=== PATIENT | female | born 1940 | race Caucasian/White ===

== ENCOUNTER 2022-03-13 07:28 | Outpatient (CLI) | payer MEDICARE, OTHER, SELFPAY ==
--- NOTE | 2022-03-13 07:38 | CT_ITS ---
WS: [id number] CT NECK TECHNIQUE: Contrast-enhanced CT of the neck with coronal and sagittal reformatted images. 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 DLP: 213.[address] scans at [facility] use at least one of these dose optimization techniques: automated e xposure control; mA and/or kV adjustment per patient size (includes targeted exams where dose is matc hed to clinical indication); or iterative reconstruction. 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 Dental artifact degrades images at the tongue base. Paranasal sinuses an d mastoid air cells well aerated. Normal posterior nasopharynx. Normal parapharyngeal fat. Parotid gl ands are normal. Normal submandibular glands. No evidence of supraglottic or glottic mass. Subglottic airway is normal. A few tiny thyroid nodules. No cervical lymphadenopathy. Mild spondylitic changes cervical spine. Cervical curve. Partially visu alized intracranial contents appear normal. Mild carotid bulb calcification. CT/CT neck w con* [id number] IMPRESSION: 1. No evidence of supraglottic or glottic mass. 2. Normal salivary glands. 3. No cervical lymphadenopathy. 4. 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 5. No other acute findings.
[2022-03-13] MEDS: iohexol 350 mg/mL 500 mL Btl (per mL) IV (07:55)
[2022-03-13 08:12] LABS: Blood Urea Nitrogen 13 mg/dL (8-23)
== END 2022-03-13 07:29 | disposition home or self-care (01) ==
LOC: RAD 07:29
PROVIDERS: Visit Provider Otolaryngology
DX: K21.9 Gastro-esophageal reflux disease without esophagitis (principal); R07.0 Pain in throat; J84.10 Pulmonary fibrosis, unspecified
CPT/HCPCS: 70491; 82565; 84520

== ENCOUNTER 2022-03-27 11:11 | Outpatient (CLI) | payer MEDICARE, OTHER, SELFPAY ==
--- NOTE | 2022-03-27 11:21 | FL_ITS ---
WS: [id number] FL barium swallow [id number] REASON FOR EXAM: GASTRO ESOPHAGEAL REFLUX DZ W/O ESOPHAGITIS/PAIN IN THROAT FLUOROSCOPY TIME: 2min [id number] # OF SPOT FILMS: 12 FINDINGS: The patient was evaluated in the standing upright and prone REESE and supine positions. The swallowing of barium was monitored with fluoroscopy and the esophagus evaluated from the orophary nx through the stomach. The upper esophagus appeared normal and no aspiration was identified. There large portion of stomach (6 x 9 cm (is above the level of the diaphragm. It appears that the ga stroesophageal junction is also above the diaphragm. There are frequent tertiary contractions in the distal third of the esophagus. There was reflux to the midesophagus with the patient standing. The reflux was accentuated with the p atient in the REESE and even more so in the supine position. FL/FL barium swallow [id number] IMPRESSION: Very large hiatal hernia with significant large volume reflux. Frequent tertiar y contractions in the distal esophagus.
== END 2022-03-27 11:12 | disposition home or self-care (01) ==
LOC: RAD 11:14
PROVIDERS: Visit Provider Otolaryngology
DX: K21.9 Gastro-esophageal reflux disease without esophagitis (principal); R07.0 Pain in throat; K44.9 Diaphragmatic hernia without obstruction or gangrene
CPT/HCPCS: 74220

== ENCOUNTER → 2022-07-21 13:47 | Outpatient (BNVA) | payer MEDICARE, OTHER, SELFPAY | PROVIDERS: PCP Internal Medicine; Visit Provider Internal Medicine Cardiovascular Disease | DX: I10 Essential (primary) hypertension (principal); I45.10 Unspecified right bundle-branch block; R01.1 Cardiac murmur, unspecified; Z87.891 Personal history of nicotine dependence | CPT/HCPCS: 93005; 99204 ==

== ENCOUNTER 2022-08-14 12:17 | Outpatient (CLI) | payer MEDICARE, OTHER, SELFPAY ==
--- NOTE | 2022-08-14 12:45 | USCV_ITS ---
Betty Olivares Age: 82 Gender: F : 1940 Exam Date: 08/14/2022 13:08 Ordering Phys: Vero Doe MD ([email or web address]) Technologist: Filomena Kincaid [place] [facility] [place] BP: / HR: 63 Rhythm: Sinus Technical Quality: Adequate MEASUREMENTS (Male / Female) Normal Values 2D ECHO LV Diastolic Diameter PLAX 3.5 cm 4.2 - 5.9 / 3.9 - 5.3 cm LV Systolic Diameter PLAX 2.3 cm LV Chamber Size 2.9 cm IVS Diastolic Thickness 1.0 cm 0.6 - 1.0 / 0.6 - 0.9 cm IVS Systolic Thickness 1.4 cm LVPW Diastolic Thickness 0.9 cm 0.6 - 1.0 / 0.6 - 0.9 cm LVPW Systolic Thickness 1.5 cm RV Chamber Size 2.8 cm LVOT Diameter 2.0 cm LV Ejection Fraction 2D Teich 63.9 % LV Ejection Fraction MOD 2C 60.5 % LV Ejection Fraction 2C AL 62.3 % LA Diameter 2.8 cm LA Width 3.9 cm LA Height 3.4 cm RA Width 3.2 cm RA Height 3.5 cm Aorta at Sinotubular Diameter 2.5 cm IVC Diameter 0.8 cm M-MODE Aortic Annulus Diameter 3.1 cm LA Ao Ratio MM 1.1 MV E Point Septal Separation 0.2 cm DOPPLER AV Peak Velocity 116.0 cm/s LVOT Peak Velocity 69.0 cm/s AV Area Cont Eq vti 2.0 cm squared AV Area Cont Eq pk 1.9 cm squared MV Area PHT 3.5 cm squared Mitral E to A Ratio 1.0 MV E' Velocity 41.0 cm/s Mitral E to MV E' Ratio 8.0 Mitral E to LV E' Lateral Ratio 7.0 Mitral E to LV E' Septal Ratio 9.2 TR Peak Velocity 264.1 cm/s TR Peak Gradient 27.9 mmHg TR Mean Velocity 182.5 cm/s TR Mean Gradient 15.3 mmHg TR Velocity Time Integral 89.0 cm TV Peak E Velocity 75.0 cm/s Right Atrial Pressure 3.0 mmHg Pulmonary Artery Systolic Pressu 30.9 mmHg PV Peak Velocity 74.0 cm/s RV Acceleration Time 0.1 s RV Ejection Time 0.3 s RV AcT/ET 0.3 FINDINGS Left Ventricle Moderate left ventricular hypertrophy. No regional wall motion abnormalities. Normal left ventricular size and systolic function, EF 62 %. Grade I/IV diastolic dysfunction (abnormal relaxation filling pattern), normal to mildly elevated filling pressures. Right Ventricle Mildly increased right ventricular size. Normal right ventricular systolic function. Right Atrium Mildly increased right atrial size. Left Atrium Normal left atrial size. Mitral Valve Thickened mitral valve. Mild mitral valve regurgitation. Aortic Valve Thickened aortic valve. Trace aortic valve regurgitation. Tricuspid Valve Moderate tricuspid valve regurgitation. Estimated pulmonary artery peak systolic pressure 31 mmHg Pulmonic Valve No gross abnormalities noted Pericardium No pericardial effusion. Aorta Normal ascending aorta dimension. IVC Normal inferior vena cava. CONCLUSIONS Moderate left ventricular hypertrophy. No regional wall motion abnormalities. Normal left ventricular size and systolic function, EF 62 %. Grade I/IV diastolic dysfunction (abnormal relaxation filling pattern), normal to mildly elevated filling pressures. Mildly increased right ventricular size. Normal right ventricular systolic function. Mildly increased right atrial size. Thickened mitral valve. Mild mitral valve regurgitation. Thickened aortic valve. Trace aortic valve regurgitation. Moderate tricuspid valve regurgitation. Estimated pulmonary artery peak systolic pressure 31 mmHg. There is no pericardial effusion. There are no intracardiac masses. No similar previous studies are available for comparison Dr Vero Doe MD [facility] (Electronically Signed) Final Date: 16 August 2022 17:06 S
== END 2022-08-14 12:18 | disposition home or self-care (01) ==
LOC: RAD 12:27
PROVIDERS: PCP Internal Medicine; Visit Provider Internal Medicine Cardiovascular Disease
DX: R06.09 Other forms of dyspnea (principal); I34.0 Nonrheumatic mitral (valve) insufficiency; I35.8 Other nonrheumatic aortic valve disorders; I07.1 Rheumatic tricuspid insufficiency
CPT/HCPCS: 93306

== ENCOUNTER → 2022-10-27 14:04 | Outpatient (BNVA) | payer MEDICARE, OTHER, SELFPAY | PROVIDERS: PCP Internal Medicine; Visit Provider Internal Medicine Cardiovascular Disease | DX: I07.1 Rheumatic tricuspid insufficiency (principal); I45.10 Unspecified right bundle-branch block; I10 Essential (primary) hypertension; Z87.891 Personal history of nicotine dependence | CPT/HCPCS: 99213 ==

== ENCOUNTER → 2024-02-18 13:42 | Outpatient (BNVA) | payer MEDICARE, OTHER, SELFPAY | PROVIDERS: PCP Internal Medicine; Visit Provider Internal Medicine Cardiovascular Disease | DX: I10 Essential (primary) hypertension (principal); I45.10 Unspecified right bundle-branch block; I36.1 Nonrheumatic tricuspid (valve) insufficiency | CPT/HCPCS: 99214 ==

== ENCOUNTER → 2024-11-29 09:46 | Outpatient (BNVA) | payer MEDICARE, OTHER, SELFPAY | PROVIDERS: PCP Internal Medicine; Visit Provider Nurse Practitioner Family | DX: L29.89 Other pruritus (principal); L21.8 Other seborrheic dermatitis; L82.0 Inflamed seborrheic keratosis; Z78.9 Other specified health status; D48.5 Neoplasm of uncertain behavior of skin | CPT/HCPCS: 11102; 17110; 99204 ==

== ENCOUNTER → 2025-01-26 08:51 | Outpatient (BNVA) | payer MEDICARE, OTHER, SELFPAY | PROVIDERS: PCP Internal Medicine; Referring Provider Nurse Practitioner Family; Visit Provider Nurse Practitioner Family | DX: D48.5 Neoplasm of uncertain behavior of skin (principal); I45.10 Unspecified right bundle-branch block; I10 Essential (primary) hypertension | CPT/HCPCS: 80048; 82728; 83550; 84439; 84443; 85025 ==

== ENCOUNTER → 2025-01-31 09:58 | Outpatient (BNVA) | payer MEDICARE, OTHER, SELFPAY | PROVIDERS: PCP Internal Medicine; Visit Provider Nurse Practitioner Family | DX: L29.89 Other pruritus (principal); E03.8 Other specified hypothyroidism; L21.8 Other seborrheic dermatitis | CPT/HCPCS: 99214 ==

== ENCOUNTER → 2025-02-13 11:15 | Outpatient (BNVA) | payer MEDICARE, OTHER, SELFPAY | PROVIDERS: PCP Internal Medicine; Visit Provider Internal Medicine Cardiovascular Disease | DX: I45.10 Unspecified right bundle-branch block (principal); I10 Essential (primary) hypertension; I36.1 Nonrheumatic tricuspid (valve) insufficiency; Z87.891 Personal history of nicotine dependence; R01.1 Cardiac murmur, unspecified | CPT/HCPCS: 93005; 99214 ==